=== PATIENT | male | born 1980 | race Two or more races ===

== ENCOUNTER 2020-12-03 15:49 | Inpatient (IN) | payer OTHER ==
[~2020-12-03] VITALS: Ht 193 cm; Wt 201.3 kg
--- NOTE | 2020-12-03 16:13 | NUR ---
EKG, HYPOXIC, 2L O2, 84%
[2020-12-03 16:39] LABS: BASOPHILS % (AUTO) 1 % (0-1); EOSINOPHILS % (AUTO) 1 % (1-7); LYMPHOCYTES % (AUTO) 37 % (22-44); MEAN CORPUSCULAR HEMOGLOBIN 27.8 pg (27.5-34.5); MEAN CORPUSCULAR HGB CONC 32.9 g/dL (33.2-36.2); MEAN PLATELET VOLUME 6.8 fL (7.4-10.4); MONOCYTES % (AUTO) 7 % (2-9); NEUTROPHILS % (AUTO) 55 % (42-75); PLATELET COUNT 152 x10^3/uL (130-400); RED BLOOD COUNT 5.39 x10^6/uL (4.38-5.82); RED CELL DISTRIBUTION WIDTH 15.6 % (9.4-14.8)
[2020-12-03 16:47] LABS: ANION GAP 8 mmol/L (5-15); CALCIUM 8.2 mg/dL (8.5-10.1); CHLORIDE 102 mmol/L (98-107); CREATININE 0.87 mg/dL (0.7-1.3)
[2020-12-03] MEDS ORDERED: DEXAMETHASONE 4 MG/ML, 1ML IVPush ONE (17:00)
[2020-12-03] MEDS ORDERED: DEXAMETHASONE 4 MG/ML, 1ML ONE (17:05)
--- NOTE | 2020-12-03 17:20 | NUR ---
PT RESTING IN BED, PLACED ON MONITORS. ERMD AT BEDSIDE FOR ASSESSMENT, WILL FOLLOW ORDERS. PT PROTECTING OWN AIRWAY WELL, NO RESPIR DISTRESS.
[2020-12-03 18:08] LABS: TROPONIN I < 0.015 ng/mL (0.000-0.045)
--- NOTE | 2020-12-03 18:13 | NUR ---
PT REMAINS ON MONITORS, VSS, MAINTAINING OWN AIRWAY, NO RESPIR DISTRESS. CONT TO MONITOR.
--- NOTE | 2020-12-03 18:22 | NUR ---
REPORT TO NICHOLE HURLEY. PT OK TO TRANSFER TO FLOOR.
--- NOTE | 2020-12-03 19:00 | NUR ---
PT TRANSFERED TO FLOOR.
[2020-12-03 19:18] VITALS: BP 126/77
[2020-12-03] MEDS ORDERED: hydrALAzine 20 MG/ML, 1ML IVPush PRN (19:30)
[2020-12-03] MEDS ORDERED: GUAIFENESIN/DM 200-20MG, 10ML UDC PO PRN (19:30)
[2020-12-03] MEDS ORDERED: ONDANSETRON 2MG/ML, 2ML IVPush PRN (19:30)
[2020-12-03] MEDS ORDERED: ASA/APAP/ CAFFEINE TABLET PO PRN (19:30)
[2020-12-03] MEDS ORDERED: CYANOCOBALAMIN 1,000 MCG/ML, 1ML IM ONE (19:30)
[2020-12-03] MEDS ORDERED: BUTALB/APAP/CAFFEINE 50MG/325MG/40MG PO PRN (19:30)
[2020-12-03] MEDS ORDERED: BACLOFEN 10 MG TABLET PO PRN (19:30)
[2020-12-03] MEDS ORDERED: CHOLECALCIFEROL 5,000u TAB PO SCH (19:30)
[2020-12-03] MEDS ORDERED: ONDANSETRON ODT 4 MG PO PRN (19:30)
[2020-12-03] MEDS ORDERED: ENALAPRILAT 1.25 MG/ML, 2ML IVPush PRN (19:30)
[2020-12-03] MEDS ORDERED: OXYcodone IR 5MG TABLET PO PRN (19:30)
[2020-12-03] MEDS ORDERED: ACETAMINOPHEN 325 MG TABLET PO PRN (19:42)
[2020-12-03 19:57] LABS: D-DIMER 0.97 ug/mlFEU (0.00-0.52); INTERNATIONAL NORMALIZED RATIO 0.98 (0.93-1.1); PROTHROMBIN TIME 10.5 Seconds (9.6-11.5)
[2020-12-03 20:25] LABS: HCT (SEDRATE) 45.5 % (39.2-51.8)
[2020-12-03] MEDS ORDERED: MELATONIN 5 MG TABLET PO SCH (21:00)
[2020-12-03] MEDS: ASCORBIC ACID 500 MG TABLET PO SCH (21:31)
[2020-12-03] MEDS: ZINC SULFATE 220 MG CAPSULE PO SCH (21:31)
[2020-12-03] MEDS: ENOXAPARIN 30 MG/0.3 ML SQ SCH (21:31)
[2020-12-03] MEDS: MAGNESIUM OXIDE 400 MG TABLET PO SCH (21:31)
[2020-12-03] MEDS: methylPREDNISolone SOD SUCC 125 MG/2 ML IVPush SCH (21:32)
[2020-12-03] MEDS: MULTIVITS,STRESS FORMULA 1 TABLET PO SCH (21:32)
[2020-12-03] MEDS: KETOROLAC 30 MG/1 ML IV SCH (21:32)
[2020-12-03] MEDS: FLUTICASONE/VILANTEROL 100-25MCG/INH INH SCH (22:18)
[2020-12-04 01:26] VITALS: BP 123/80
[2020-12-04] MEDS: methylPREDNISolone SOD SUCC 125 MG/2 ML IVPush SCH ×3 (01:38→14:25)
[2020-12-04] MEDS: KETOROLAC 30 MG/1 ML IV SCH ×3 (01:38→14:25)
[2020-12-04 05:46] LABS: BASOPHILS % (AUTO) 0 % (0-1); EOSINOPHILS % (AUTO) 0 % (1-7); LYMPHOCYTES % (AUTO) 31 % (22-44); MEAN PLATELET VOLUME 7.5 fL (7.4-10.4); MONOCYTES % (AUTO) 4 % (2-9); NEUTROPHILS % (AUTO) 65 % (42-75); PLATELET COUNT 146 x10^3/uL (130-400); RED BLOOD COUNT 5.19 x10^6/uL (4.38-5.82); RED CELL DISTRIBUTION WIDTH 15.2 % (9.4-14.8)
[2020-12-04 05:51] LABS: CHLORIDE 104 mmol/L (98-107)
[2020-12-04 05:59] LABS: ALANINE AMINOTRANSFERASE 59 U/L (12-78); ALBUMIN 3.2 g/dL (3.4-5.0); ALKALINE PHOSPHATASE 113 U/L (45-117); ANION GAP 5 mmol/L (5-15); BILIRUBIN,TOTAL 0.6 mg/dL (0.2-1.0); CALCIUM 9.1 mg/dL (8.5-10.1); CREATININE 0.76 mg/dL (0.7-1.3); TOTAL PROTEIN 7.1 g/dL (6.4-8.2)
[2020-12-04] MEDS: INSULIN LISPRO 100 UNITS/ML, PEN SQ-INSULIN SCH ×2 (08:06→12:11)
[2020-12-04] MEDS: FLUTICASONE/VILANTEROL 100-25MCG/INH INH SCH (08:07)
[2020-12-04] MEDS: ENOXAPARIN 30 MG/0.3 ML SQ SCH (08:07)
[2020-12-04] MEDS: MULTIVITS,STRESS FORMULA 1 TABLET PO SCH (08:09)
[2020-12-04] MEDS: ASCORBIC ACID 500 MG TABLET PO SCH (08:10)
[2020-12-04] MEDS: ZINC SULFATE 220 MG CAPSULE PO SCH (08:10)
[2020-12-04] MEDS: MAGNESIUM OXIDE 400 MG TABLET PO SCH (08:16)
[2020-12-04 08:55] VITALS: BP 100/69
[2020-12-04] MEDS ORDERED: SENNA/DOCUSATE TABLET PO SCH (09:00)
[2020-12-04] MEDS ORDERED: CHOLECALCIFEROL 5,000u TAB PO SCH (09:00)
[2020-12-04 13:09] VITALS: BP 102/67
== END 2020-12-04 16:16 | disposition left against medical advice (07) | DRG 193 ==
LOC: ED 19:09 → 3N 19:11
PROVIDERS: ADMIT Family Medicine; ATTEND Family Medicine
DX: J18.9 Pneumonia, unspecified organism (principal); J96.01 Acute respiratory failure with hypoxia; Z68.43 Body mass index [BMI] 50.0-59.9, adult; E87.1 Hypo-osmolality and hyponatremia; Z20.822 Contact with and (suspected) exposure to COVID-19; Z53.29 Procedure and treatment not carried out because of patient's decision for other reasons; E66.01 Morbid (severe) obesity due to excess calories; E83.51 Hypocalcemia; K42.9 Umbilical hernia without obstruction or gangrene
CPT/HCPCS: 36415; 71045; 80048; 80053; 82040; 82306; 82728; 82962; 83036; 83615; 83735; 83880; 84145; 84484; 85025; 85379; 85610; 85651; 86140; 87040; 93005; 96374; 99285; G0378; J1100; J1650; J1885; U0005; J1815; J2930; J3420; U0003

== ENCOUNTER 2020-12-05 18:23 | Inpatient (IN) | payer MEDICAID, OTHER ==
[~2020-12-05] VITALS: Ht 193 cm; Wt 207.5 kg
[2020-12-05 19:30] LABS: BASOPHILS % (AUTO) 0 % (0-1); EOSINOPHILS % (AUTO) 0 % (1-7); LYMPHOCYTES % (AUTO) 29 % (22-44); MEAN CORPUSCULAR HEMOGLOBIN 28.2 pg (27.5-34.5); MEAN CORPUSCULAR HGB CONC 33.6 g/dL (33.2-36.2); MEAN PLATELET VOLUME 6.8 fL (7.4-10.4); MONOCYTES % (AUTO) 7 % (2-9); NEUTROPHILS % (AUTO) 64 % (42-75); PLATELET COUNT 208 x10^3/uL (130-400); RED BLOOD COUNT 5.34 x10^6/uL (4.38-5.82); RED CELL DISTRIBUTION WIDTH 15.4 % (9.4-14.8)
[2020-12-05 19:41] LABS: ALANINE AMINOTRANSFERASE 45 U/L (12-78); ALBUMIN 3.1 g/dL (3.4-5.0); ANION GAP 7 mmol/L (5-15); CALCIUM 8.7 mg/dL (8.5-10.1); CHLORIDE 101 mmol/L (98-107); CREATININE 0.89 mg/dL (0.7-1.3)
[2020-12-05 19:44] LABS: ALKALINE PHOSPHATASE 96 U/L (45-117); BILIRUBIN,TOTAL 0.6 mg/dL (0.2-1.0)
--- NOTE | 2020-12-05 20:40 | NUR ---
PT PLACED INTO ROOM FROM LOBBY. ASSUMED CARE OF PT AT THIS TIME.
[2020-12-05] MEDS ORDERED: AZITHROMYCIN 250 MG TABLET ONE (21:18)
[2020-12-05] MEDS ORDERED: AZITHROMYCIN 500 MG TABLET PO ONE (21:30)
--- NOTE | 2020-12-05 21:45 | NUR ---
DR. RUVALCABA REQUESTING PT TO BE DC'D HOME WITH O2. ED THROUGHPUT RN, SINDI, WORKING TO ARRANGE. DISCUSSED POC WITH PT AND PT'S FAMILY MEMBER. VERBALIZED UNDERSTANDING. DENIES FURTHER NEEDS AT THIS TIME. VSS. CALL LIGHT W/IN REACH.
--- NOTE | 2020-12-05 21:51 | NUR ---
REPORT TO MEI GALICIA.
--- NOTE | 2020-12-05 21:58 | NUR ---
report from Dana elliott
--- NOTE | 2020-12-05 22:47 | NUR ---
PT UP FOR ROAD TEST WITH SP02 MONITORING, 81% RA, HR 121.
--- NOTE | 2020-12-05 22:51 | NUR ---
back in room, on 2 l NC, sp02 now 94%
--- NOTE | 2020-12-05 23:16 | NUR ---
KATARZYNA RN: WORKING ON HOME O2 SET-UP. PAPERWORK FAXED; BUSY. RE-FAXED.
--- NOTE | 2020-12-05 23:36 | NUR ---
FAX CONFIRMATION RECEIVED. MAKING PHONE CALL FOR F/U.
--- NOTE | 2020-12-05 23:52 | NUR ---
SPOKE WITH [facility] AFTER HOURS. AWAITING CALL BACK FROM [facility] COORDIN[facility] TO ENSURE PT. WILL HAVE O2 SET UP PRIOR TO O2 TANK RUNNING OUT OF O2 IF SENT HOME WITH O2.
--- NOTE | 2020-12-06 01:05 | NUR ---
TP RN: RECEIVED CALL FROM MADAY FROM [facility]. PER MADAY THEY WILL NOT BE SETTING UP OR DELIVERING ANY O2 AFTER 3PM DUE TO SHORT STAFFING. PT. TO REMAIN IN ED UNTIL O2 SET UP CAN BE SCHEDULED FOR THE AM.
--- NOTE | 2020-12-06 02:21 | NUR ---
Report to geovani elliott
[2020-12-06 02:45] VITALS: BP 137/81
[2020-12-06] MEDS ORDERED: LABETALOL 5MG/ML, 20ML IVPush PRN (03:00)
[2020-12-06] MEDS ORDERED: ACETAMINOPHEN 325 MG TABLET PO PRN (03:00)
[2020-12-06] MEDS: ENOXAPARIN 30 MG/0.3 ML SQ SCH ×2 (03:41→15:00)
[2020-12-06] MEDS: CEFTRIAXONE 1,000 MG in DEXTROSE 5% 50 ML IVPB SCH (03:41)
[2020-12-06 08:09] VITALS: BP 107/72
[2020-12-06] MEDS: DOXYCYCLINE 100MG TABLET PO SCH ×2 (09:12→20:38)
[2020-12-06 12:35] VITALS: BP 134/77
[2020-12-06 19:58] VITALS: BP 118/73
[2020-12-07 00:28] VITALS: BP 125/76
[2020-12-07] MEDS: ENOXAPARIN 30 MG/0.3 ML SQ SCH ×2 (03:02→15:28)
[2020-12-07] MEDS: CEFTRIAXONE 1,000 MG in DEXTROSE 5% 50 ML IVPB SCH (03:02)
[2020-12-07 06:55] VITALS: BP 115/72
[2020-12-07] MEDS: DOXYCYCLINE 100MG TABLET PO SCH ×2 (08:20→20:13)
[2020-12-07 13:03] VITALS: BP 128/84
[2020-12-07] MEDS ORDERED: DEXTROSE 4 GM TAB.CHEW PO PRN (14:00)
[2020-12-07] MEDS ORDERED: DEXTROSE 50%, 50ML SYRINGE IVPush PRN (14:00)
[2020-12-07] MEDS ORDERED: GLUCAGON 1 MG IM PRN (14:00)
[2020-12-07] MEDS: INSULIN LISPRO 100 UNITS/ML, PEN SQ-INSULIN SCH ×2 (15:29→20:19)
[2020-12-07 19:54] VITALS: BP 160/97
[2020-12-07] MEDS: SODIUM CHLORIDE FLUSH 10ML SYR IVF SCH (20:13)
[2020-12-08 01:43] VITALS: BP 152/78
[2020-12-08] MEDS: CEFTRIAXONE 1,000 MG in DEXTROSE 5% 50 ML IVPB SCH (03:47)
[2020-12-08] MEDS: ENOXAPARIN 30 MG/0.3 ML SQ SCH ×2 (03:48→15:18)
[2020-12-08 07:48] VITALS: BP 120/77
[2020-12-08] MEDS: INSULIN LISPRO 100 UNITS/ML, PEN SQ-INSULIN SCH ×4 (07:57→20:34)
[2020-12-08] MEDS ORDERED: OMNIPAQUE 350 MG/ML, 100ML BOTTLE ONE (09:22)
[2020-12-08] MEDS: DOXYCYCLINE 100MG TABLET PO SCH ×2 (09:55→20:35)
[2020-12-08] MEDS: SODIUM CHLORIDE FLUSH 10ML SYR IVF SCH ×2 (09:57→20:35)
[2020-12-08 14:29] VITALS: BP 130/83
[2020-12-08] MEDS: THIAMINE 100MG TABLET PO SCH (16:36)
[2020-12-08 17:05] LABS: BASOPHILS % (AUTO) 1 % (0-1); EOSINOPHILS % (AUTO) 4 % (1-7); LYMPHOCYTES % (AUTO) 29 % (22-44); MEAN CORPUSCULAR HEMOGLOBIN 27.7 pg (27.5-34.5); MEAN CORPUSCULAR HGB CONC 33.1 g/dL (33.2-36.2); MEAN PLATELET VOLUME 6.5 fL (7.4-10.4); MONOCYTES % (AUTO) 6 % (2-9); NEUTROPHILS % (AUTO) 60 % (42-75); PLATELET COUNT 205 x10^3/uL (130-400); RED BLOOD COUNT 5.12 x10^6/uL (4.38-5.82); RED CELL DISTRIBUTION WIDTH 14.8 % (9.4-14.8)
[2020-12-08 17:16] LABS: D-DIMER 0.62 ug/mlFEU (0.00-0.52)
[2020-12-08 17:17] LABS: ALANINE AMINOTRANSFERASE 47 U/L (12-78); ALBUMIN 3.1 g/dL (3.4-5.0); ANION GAP 6 mmol/L (5-15); C-REACTIVE PROTEIN, QUANT 0.85 mg/dL (0.02-0.49); CALCIUM 8.7 mg/dL (8.5-10.1); CHLORIDE 103 mmol/L (98-107); CREATININE 0.57 mg/dL (0.7-1.3)
[2020-12-08 17:22] LABS: ALKALINE PHOSPHATASE 87 U/L (45-117); BILIRUBIN,TOTAL 0.6 mg/dL (0.2-1.0); TOTAL PROTEIN 6.5 g/dL (6.4-8.2)
[2020-12-08] MEDS: ASCORBIC ACID 250 MG TAB PO SCH (17:39)
[2020-12-08 17:42] LABS: HCT (SEDRATE) 42.9 % (39.2-51.8)
[2020-12-08 20:37] VITALS: BP 131/81
[2020-12-09 00:15] VITALS: BP 147/91
[2020-12-09] MEDS: CEFTRIAXONE 2,000 MG in DEXTROSE 5% 50 ML IVPB SCH (04:01)
[2020-12-09] MEDS: ENOXAPARIN 30 MG/0.3 ML SQ SCH ×2 (04:01→14:57)
[2020-12-09 07:38] VITALS: BP 137/83
[2020-12-09] MEDS: INSULIN LISPRO 100 UNITS/ML, PEN SQ-INSULIN SCH ×4 (08:02→21:44)
[2020-12-09] MEDS: THIAMINE 100MG TABLET PO SCH (08:25)
[2020-12-09] MEDS: DOXYCYCLINE 100MG TABLET PO SCH ×2 (08:25→20:11)
[2020-12-09] MEDS: CHOLECALCIFEROL 5,000u TAB PO SCH (08:25)
[2020-12-09] MEDS: ASCORBIC ACID 250 MG TAB PO SCH ×2 (08:27→17:13)
[2020-12-09] MEDS: SODIUM CHLORIDE FLUSH 10ML SYR IVF SCH ×2 (10:44→20:11)
[2020-12-09 12:01] LABS: BASOPHILS % (AUTO) 1 % (0-1); EOSINOPHILS % (AUTO) 4 % (1-7); LYMPHOCYTES % (AUTO) 30 % (22-44); MEAN CORPUSCULAR HEMOGLOBIN 28.4 pg (27.5-34.5); MEAN CORPUSCULAR HGB CONC 33.8 g/dL (33.2-36.2); MEAN PLATELET VOLUME 6.5 fL (7.4-10.4); MONOCYTES % (AUTO) 5 % (2-9); NEUTROPHILS % (AUTO) 60 % (42-75); PLATELET COUNT 207 x10^3/uL (130-400); RED BLOOD COUNT 5.08 x10^6/uL (4.38-5.82); RED CELL DISTRIBUTION WIDTH 15.2 % (9.4-14.8)
[2020-12-09 12:02] LABS: HCT (SEDRATE) 42.6 % (39.2-51.8)
[2020-12-09 12:11] LABS: ALBUMIN 3.1 g/dL (3.4-5.0); ANION GAP 6 mmol/L (5-15); CALCIUM 8.9 mg/dL (8.5-10.1); CHLORIDE 102 mmol/L (98-107); D-DIMER 0.46 ug/mlFEU (0.00-0.52)
[2020-12-09 12:17] LABS: ALANINE AMINOTRANSFERASE 53 U/L (12-78); ALKALINE PHOSPHATASE 81 U/L (45-117); BILIRUBIN,TOTAL 0.5 mg/dL (0.2-1.0); C-REACTIVE PROTEIN, QUANT 0.65 mg/dL (0.02-0.49); CREATININE 0.61 mg/dL (0.7-1.3); TOTAL PROTEIN 6.4 g/dL (6.4-8.2)
[2020-12-09 14:10] VITALS: BP 135/80
[2020-12-09] MEDS: DEXAMETHASONE 4 MG/ML, 1ML IVPush SCH (17:14)
[2020-12-09] MEDS ORDERED: REMDESIVIR 200 MG in SODIUM CHLORIDE 0.9% 100 ML IVPB ONE (17:30)
[2020-12-09 20:16] VITALS: BP 138/82
[2020-12-10 00:45] VITALS: BP 134/74
[2020-12-10] MEDS: CEFTRIAXONE 2,000 MG in DEXTROSE 5% 50 ML IVPB SCH (03:22)
[2020-12-10] MEDS: ENOXAPARIN 30 MG/0.3 ML SQ SCH ×2 (03:23→16:44)
[2020-12-10 06:48] LABS: HCT (SEDRATE) 42.8 % (39.2-51.8)
[2020-12-10 06:58] LABS: BASOPHILS % (AUTO) 0 % (0-1); EOSINOPHILS % (AUTO) 0 % (1-7); LYMPHOCYTES % (AUTO) 19 % (22-44); MEAN CORPUSCULAR HEMOGLOBIN 28.6 pg (27.5-34.5); MEAN PLATELET VOLUME 6.7 fL (7.4-10.4); MONOCYTES % (AUTO) 4 % (2-9); NEUTROPHILS % (AUTO) 76 % (42-75); PLATELET COUNT 228 x10^3/uL (130-400); RED BLOOD COUNT 5.06 x10^6/uL (4.38-5.82)
[2020-12-10 07:03] LABS: CHLORIDE 103 mmol/L (98-107)
[2020-12-10 07:13] LABS: ALANINE AMINOTRANSFERASE 54 U/L (12-78); ALBUMIN 3.3 g/dL (3.4-5.0); ALKALINE PHOSPHATASE 83 U/L (45-117); ANION GAP 6 mmol/L (5-15); BILIRUBIN,TOTAL 0.6 mg/dL (0.2-1.0); CALCIUM 9.2 mg/dL (8.5-10.1); CREATININE 0.57 mg/dL (0.7-1.3)
[2020-12-10] MEDS: INSULIN LISPRO 100 UNITS/ML, PEN SQ-INSULIN SCH ×4 (07:22→20:31)
[2020-12-10 07:24] VITALS: BP 126/70
[2020-12-10] MEDS: ASCORBIC ACID 250 MG TAB PO SCH ×2 (08:37→17:19)
[2020-12-10] MEDS: DOXYCYCLINE 100MG TABLET PO SCH ×2 (08:37→20:31)
[2020-12-10] MEDS: CHOLECALCIFEROL 5,000u TAB PO SCH (08:37)
[2020-12-10] MEDS: DEXAMETHASONE 4 MG/ML, 1ML IVPush SCH (08:37)
[2020-12-10] MEDS: SODIUM CHLORIDE FLUSH 10ML SYR IVF SCH ×2 (08:37→20:32)
[2020-12-10] MEDS: THIAMINE 100MG TABLET PO SCH (08:37)
[2020-12-10 13:28] VITALS: BP 134/71
[2020-12-10] MEDS: REMDESIVIR 100 MG in SODIUM CHLORIDE 0.9% 100 ML IVPB SCH (17:19)
[2020-12-10 20:18] VITALS: BP 112/71
[2020-12-11 01:20] VITALS: BP 103/69
[2020-12-11] MEDS: CEFTRIAXONE 2,000 MG in DEXTROSE 5% 50 ML IVPB SCH (03:39)
[2020-12-11] MEDS: ENOXAPARIN 30 MG/0.3 ML SQ SCH ×2 (03:39→16:26)
[2020-12-11 06:33] LABS: HCT (SEDRATE) 44.2 % (39.2-51.8)
[2020-12-11 06:35] LABS: BASOPHILS % (AUTO) 1 % (0-1); EOSINOPHILS % (AUTO) 1 % (1-7); LYMPHOCYTES % (AUTO) 26 % (22-44); MEAN CORPUSCULAR HEMOGLOBIN 28.5 pg (27.5-34.5); MEAN CORPUSCULAR HGB CONC 34.2 g/dL (33.2-36.2); MEAN PLATELET VOLUME 6.7 fL (7.4-10.4); MONOCYTES % (AUTO) 7 % (2-9); NEUTROPHILS % (AUTO) 66 % (42-75); PLATELET COUNT 240 x10^3/uL (130-400); RED BLOOD COUNT 5.13 x10^6/uL (4.38-5.82); RED CELL DISTRIBUTION WIDTH 15.4 % (9.4-14.8)
[2020-12-11 06:43] LABS: D-DIMER 0.29 ug/mlFEU (0.00-0.52)
[2020-12-11 06:46] LABS: ALBUMIN 3.4 g/dL (3.4-5.0); ANION GAP 7 mmol/L (5-15); CALCIUM 9.1 mg/dL (8.5-10.1); CHLORIDE 102 mmol/L (98-107)
[2020-12-11 06:51] LABS: ALANINE AMINOTRANSFERASE 50 U/L (12-78); ALKALINE PHOSPHATASE 77 U/L (45-117); BILIRUBIN,TOTAL 0.5 mg/dL (0.2-1.0); C-REACTIVE PROTEIN, QUANT 0.33 mg/dL (0.02-0.49); CREATININE 0.66 mg/dL (0.7-1.3); TOTAL PROTEIN 6.9 g/dL (6.4-8.2)
[2020-12-11 07:14] VITALS: BP 108/70
[2020-12-11] MEDS ORDERED: INSULIN GLARGINE 100 UNITS/ML, PEN SQ-INSULIN SCH (09:00)
[2020-12-11] MEDS: DOXYCYCLINE 100MG TABLET PO SCH ×2 (09:26→21:02)
[2020-12-11] MEDS: ASCORBIC ACID 250 MG TAB PO SCH ×2 (09:26→16:25)
[2020-12-11] MEDS: THIAMINE 100MG TABLET PO SCH (09:26)
[2020-12-11] MEDS: CHOLECALCIFEROL 5,000u TAB PO SCH (09:26)
[2020-12-11] MEDS: DEXAMETHASONE 4 MG/ML, 1ML IVPush SCH (09:26)
[2020-12-11] MEDS: SODIUM CHLORIDE FLUSH 10ML SYR IVF SCH ×2 (09:27→21:03)
[2020-12-11] MEDS: INSULIN LISPRO 100 UNITS/ML, PEN SQ-INSULIN SCH ×4 (09:27→21:02)
[2020-12-11 13:30] VITALS: BP 127/73
[2020-12-11] MEDS: REMDESIVIR 100 MG in SODIUM CHLORIDE 0.9% 100 ML IVPB SCH (17:00)
[2020-12-11 19:07] VITALS: BP 120/78
[2020-12-12 01:33] VITALS: BP 120/70
[2020-12-12] MEDS: CEFTRIAXONE 2,000 MG in DEXTROSE 5% 50 ML IVPB SCH (03:54)
[2020-12-12] MEDS: ENOXAPARIN 30 MG/0.3 ML SQ SCH (03:54)
[2020-12-12] MEDS ORDERED: CHOL500045 PO (06:21)
[2020-12-12] MEDS ORDERED: DOXY100T PO (06:21)
[2020-12-12] MEDS ORDERED: INSU100I13 SQ-INSULIN (06:21)
[2020-12-12] MEDS ORDERED: THIA100T67 PO (06:21)
[2020-12-12] MEDS ORDERED: ASCO250T12 PO (06:21)
[2020-12-12 07:30] VITALS: BP 121/78
[2020-12-12 08:25] LABS: BASOPHILS % (AUTO) 1 % (0-1); EOSINOPHILS % (AUTO) 1 % (1-7); LYMPHOCYTES % (AUTO) 28 % (22-44); MEAN CORPUSCULAR HEMOGLOBIN 27.8 pg (27.5-34.5); MEAN CORPUSCULAR HGB CONC 32.8 g/dL (33.2-36.2); MEAN PLATELET VOLUME 6.8 fL (7.4-10.4); MONOCYTES % (AUTO) 9 % (2-9); NEUTROPHILS % (AUTO) 62 % (42-75); PLATELET COUNT 239 x10^3/uL (130-400); RED CELL DISTRIBUTION WIDTH 15.3 % (9.4-14.8)
[2020-12-12 08:33] LABS: FIBRINOGEN 273 mg/dL (200-340)
[2020-12-12 08:36] LABS: C-REACTIVE PROTEIN, QUANT 0.32 mg/dL (0.02-0.49)
[2020-12-12 08:47] LABS: D-DIMER < 0.19 ug/mlFEU (0.00-0.52)
[2020-12-12] MEDS: INSULIN LISPRO 100 UNITS/ML, PEN SQ-INSULIN SCH ×2 (08:51→11:59)
[2020-12-12] MEDS: CHOLECALCIFEROL 5,000u TAB PO SCH (08:52)
[2020-12-12] MEDS: DOXYCYCLINE 100MG TABLET PO SCH (08:52)
[2020-12-12] MEDS: THIAMINE 100MG TABLET PO SCH (08:52)
[2020-12-12] MEDS: ASCORBIC ACID 250 MG TAB PO SCH (08:52)
[2020-12-12] MEDS: SODIUM CHLORIDE FLUSH 10ML SYR IVF SCH (08:52)
[2020-12-12] MEDS: DEXAMETHASONE 4 MG/ML, 1ML IVPush SCH (08:52)
[2020-12-12] MEDS ORDERED: INSULIN GLARGINE 100 UNITS/ML, PEN SQ-INSULIN SCH (09:00)
[2020-12-12 10:17] LABS: ALANINE AMINOTRANSFERASE 53 U/L (12-78); ALBUMIN 3.3 g/dL (3.4-5.0); ANION GAP 7 mmol/L (5-15); CHLORIDE 103 mmol/L (98-107); CREATININE 0.62 mg/dL (0.7-1.3)
[2020-12-12 10:19] LABS: ALKALINE PHOSPHATASE 77 U/L (45-117); BILIRUBIN,TOTAL 0.6 mg/dL (0.2-1.0); TOTAL PROTEIN 6.8 g/dL (6.4-8.2)
[2020-12-12] MEDS ORDERED: CEFD300C37 PO (13:06)
[2020-12-12 13:27] VITALS: BP 129/80
[2020-12-12] MEDS: REMDESIVIR 100 MG in SODIUM CHLORIDE 0.9% 100 ML IVPB SCH (13:32)
== END 2020-12-12 16:59 | disposition home or self-care (01) | DRG 177 ==
LOC: ED 21:38 → OBSVTOIN 12-06 01:43 → INTOOBSV 12-06 01:43 → EDIP 12-06 01:43 → 3N 12-06 02:39
PROVIDERS: ADMIT Family Medicine; ATTEND Hospitalist
PROC: XW033E5 Introduction of Remdesivir Anti-infective into Peripheral Vein, Percutaneous Approach, New Technology Group 5 (ICD-10-PCS; principal; 2020-12-09)
DX: U07.1 COVID-19 (principal); J96.01 Acute respiratory failure with hypoxia; J12.82 Pneumonia due to coronavirus disease 2019; E87.1 Hypo-osmolality and hyponatremia; Z68.43 Body mass index [BMI] 50.0-59.9, adult; E11.9 Type 2 diabetes mellitus without complications; E66.01 Morbid (severe) obesity due to excess calories; Z87.891 Personal history of nicotine dependence
CPT/HCPCS: 36415; 71045; 71275; 80053; 82728; 82962; 83036; 83615; 83735; 83880; 84100; 85025; 85379; 85384; 85651; 86140; 93005; 99285; G0378; J0696; J1100; J1650; Q9967; U0005; J1815; U0003